=== PATIENT | female | born 1990 | race Caucasian/White ===

== ENCOUNTER 2020-12-19 12:50 | Emergency (ER) | payer OTHER ==
[~2020-12-19] VITALS: Ht 162.6 cm; Wt 65.8 kg
--- NOTE | 2020-12-19 12:50 | NUR ---
PT BIB SELF C/O PAINFUL URINATION "I WAS DX OF UTI AND IM TAKING MACROBID" PT IS AAOX4, NOT IN RESPIRATORY DISTRESS, V/S STABLE, KEPT RESTED AND COMFORTABLE. WILL CONTINUE TO MONITOR.
--- NOTE | 2020-12-19 13:00 | NUR ---
SEEN AND EXAMINED BY .
[2020-12-19] MEDS ORDERED: LEVOFLOXACIN 500 MG /D5W 100ML 500 MG/100 ML PIGGYBACK IV ONE (13:30)
[2020-12-19] MEDS ORDERED: IV NS 0.9% 1,000 ML BAG IV ONE (13:30)
[2020-12-19] MEDS ORDERED: KETOROLAC TROMETHAMINE INJ 30 MG/ML VIAL IV ONE (13:30)
--- NOTE | 2020-12-19 13:30 | NUR ---
IV LINE ESTABLISHED.
[2020-12-19] MEDS ORDERED: LEVO500T90 PO (13:31)
[2020-12-19] MEDS ORDERED: IBUP-1955 PO (13:31)
[2020-12-19] MEDS ORDERED: LEVOFLOXACIN 500 MG /D5W 100ML 100 ML IV ONE (13:34)
[2020-12-19] MEDS ORDERED: KETOROLAC TROMETHAMINE INJ 30 MG/ML VIAL ONE (13:34)
[2020-12-19 13:50] LABS: BASOPHILS # (AUTO) 0.1 /CMM (0.0-0.2); BASOPHILS % (AUTO) 0.9 % (0.0-2.0); EOSINOPHILS % (AUTO) 1.7 % (0.0-6.0); HEMATOCRIT 40 % (33-45); HEMOGLOBIN 13.4 g/dL (11.5-14.8); LYMPHOCYTES # (AUTO) 1.3 /CMM (0.8-4.8); MEAN CORPUSCULAR HGB CONC 33 g/dl (31.0-36.0); MEAN CORPUSCULAR VOLUME 90 fL (82-100); MONOCYTES # (AUTO) 0.6 /CMM (0.1-1.30); MONOCYTES % (AUTO) 9.8 % (2.0-12.0); NEUTROPHILS # (AUTO) 4.3 /CMM (1.8-8.9); NEUTROPHILS % (AUTO) 67.6 % (43.0-81.0); PLATELET COUNT (AUTO) 242 /CMM (150-450); RED BLOOD CELL COUNT(AUTO) 4.48 MIL/uL (4.0-5.2); WHITE BLOOD COUNT (AUTO) 6.4 K/uL (4.3-11.0)
[2020-12-19 13:52] LABS: BILIRUBIN,URINE NEGATIVE (NEGATIVE); COLOR,URINE YELLOW (YELLOW); LEUKOCYTE ESTERASE ,URINE SMALL (NEGATIVE); NITRITE, URINE NEGATIVE (NEGATIVE); PROTEIN,URINE NEGATIVE (NEGATIVE); UGLUCOSE NEGATIVE (NEGATIVE); UROBILINOGEN,URINE 0.2 EU/dL (0.2)
[2020-12-19 13:58] LABS: CALCIUM, SERUM 8.6 mg/dL (8.5-10.1); CREATININE 0.8 mg/dL (0.6-1.3); POTASSIUM 3.7 mmol/L (3.5-5.1)
[2020-12-19 14:00] LABS: BACTERIA,URINE Few /HPF (None Seen); RBC,URINE 0-2 /HPF (0-2); SQUAMOUS EPITHELIAL CELL,UR Moderate /HPF (None Seen)
[2020-12-19 14:26] VITALS: BP 112/52
--- NOTE | 2020-12-19 14:26 | NUR ---
IV removed. Catheter intact and site benign. Pressure and 4x4 applied to site. No bleeding noted. Patient discharged to home in stable condition. Written and verbal after care instructions given. Patient verbalizes understanding of instruction.
== END 2020-12-19 14:27 | disposition home or self-care (01) ==
LOC: ER 13:00
DX: N39.0 Urinary tract infection, site not specified (principal); Z98.890 Other specified postprocedural states; Z88.2 Allergy status to sulfonamides; Z88.1 Allergy status to other antibiotic agents; Z79.899 Other long term (current) drug therapy
CPT/HCPCS: 36415; 80048; 81001; 84703; 85025; 87086; 96365; 96375; 99284; J1885; J1956; J7030

== ENCOUNTER 2023-01-09 21:22 | Emergency (ER) | payer OTHER ==
[~2023-01-09] VITALS: Ht 165.1 cm; Wt 68.0 kg
[~2023-01-09 21:22] MED LIST: IBUP-1955 PO; LEVO500T90 PO
--- NOTE | 2023-01-09 22:01 | NUR ---
BIBS FOR HEADACHE X 1 WK, WENT TO URGENT CARE, WAS TOLD SHE HAS COMPLICATED RIGHT EAR INFECTION, ADVISED TO GO TO ER. HX OF CA. PT AAOX4, IN NAD, PLACED COMFORTABLY IN BED, VITALS CHECKED.
[2023-01-09] MEDS ORDERED: SUMATRIPTAN SUCCINATE 6 MG/0.5 ML VIAL SQ ONE ×2 (22:21→22:30)
[2023-01-09] MEDS ORDERED: METOCLOPRAMIDE HCL 10 MG/2 ML VIAL ONE (22:21)
--- NOTE | 2023-01-09 22:25 | NUR ---
PT TAKEN TO CT VIA [facility]
--- NOTE | 2023-01-09 22:29 | NUR ---
PT REFUSED IV OR IV MEDS; DR NIX DO AWARE
[2023-01-09] MEDS ORDERED: METOCLOPRAMIDE HCL 10 MG/2 ML VIAL IV ONE (22:30)
[2023-01-09] MEDS ORDERED: IV NS 0.9% 1,000 ML BAG IV ONE (22:30)
--- NOTE | 2023-01-09 22:30 | NUR ---
PT TO CT ACCOMPANIED BY TECH
--- NOTE | 2023-01-09 22:35 | NUR ---
PT RETURNED FROM CT
[2023-01-09] MEDS ORDERED: CLIN300C12 PO (23:11)
[2023-01-09] MEDS ORDERED: CLINDAMYCIN HCL 150 MG CAPSULE ONE (23:15)
--- NOTE | 2023-01-09 23:20 | NUR ---
Patient discharged to home in stable condition. Written and verbal after care instructions given. Patient verbalizes understanding of instruction.
[2023-01-09 23:21] VITALS: BP 117/67
[2023-01-09] MEDS ORDERED: CLINDAMYCIN HCL 150 MG CAPSULE PO ONE (23:30)
== END 2023-01-09 23:22 | disposition home or self-care (01) ==
LOC: ER 21:32
DX: H66.91 Otitis media, unspecified, right ear (principal); R51.9 Headache, unspecified; Z79.899 Other long term (current) drug therapy
CPT/HCPCS: 99284; 70450; J3030; J2765

== ENCOUNTER 2023-04-09 16:23 | Emergency (ER) | payer OTHER ==
[~2023-04-09] VITALS: Ht 165.1 cm; Wt 75.7 kg
[~2023-04-09 16:23] MED LIST changes: +CLIN300C12 PO
[2023-04-09 17:10] VITALS: BP 109/71; TEMP 98
--- NOTE | 2023-04-09 17:25 | NUR ---
pt c/o of multiple episodes of rt ear infection started last May, took several prescribed anti biotic and eardrops. today pain is 10/10 and cannot function well. awaiting for dr rodriguez orders
[2023-04-09] MEDS ORDERED: AZIT250T PO (18:05)
[2023-04-09 18:13] VITALS: O2SAT 100
--- NOTE | 2023-04-09 18:13 | NUR ---
Patient discharged to home in stable condition. Written and verbal after care instructions given. Patient verbalizes understanding of instruction.
== END 2023-04-09 18:14 | disposition home or self-care (01) ==
LOC: ER 16:28
DX: H66.91 Otitis media, unspecified, right ear (principal); Z79.899 Other long term (current) drug therapy; Z88.2 Allergy status to sulfonamides; Z88.1 Allergy status to other antibiotic agents